=== PATIENT | female | born 1930 | race Two or more races ===

== ENCOUNTER 2017-08-21 10:18 | Outpatient (CLI) | payer OTHER | END 2017-08-21 10:38 | disposition home or self-care (01) | LOC: RAD 501 10:18 | DX: M17.0 Bilateral primary osteoarthritis of knee (principal) ==

== ENCOUNTER 2017-09-13 21:35 | Inpatient (IN) | payer OTHER ==
[~2017-09-13] VITALS: Ht 149.9 cm; Wt 80.7 kg
== END 2017-09-14 15:01 | disposition left against medical advice (07) | DRG 294 ==
LOC: ER 21:35 → MEDJ 09-14 09:16
PROC: B54DZZZ Ultrasonography of Bilateral Lower Extremity Veins (ICD-10-PCS; principal; 2017-09-14)
DX: I80.232 Phlebitis and thrombophlebitis of left tibial vein (principal); L03.116 Cellulitis of left lower limb; I10 Essential (primary) hypertension; I87.2 Venous insufficiency (chronic) (peripheral)

== ENCOUNTER 2017-11-27 12:47 | Inpatient (IN) | payer OTHER ==
[~2017-11-27] VITALS: Ht 162.6 cm; Wt 90.7 kg
[2017-12-01] MEDS ORDERED: LOPRESSOR25 MG PO (12:16)
== END 2017-12-02 11:10 | disposition home or self-care (01) | DRG 89 ==
LOC: ER 12:47 → MEDJ 11-28 15:16 → SEC-K 11-28 15:16 → MEDJ 11-28 16:00 → MEDI 11-28 16:00 → MEDJ 11-28 17:05
PROC: 0S9D3ZZ Drainage of Left Knee Joint, Percutaneous Approach (ICD-10-PCS; principal; 2017-11-28)
PROC: B246ZZZ Ultrasonography of Right and Left Heart (ICD-10-PCS; 2017-11-28)
PROC: 4A12X4Z Monitoring of Cardiac Electrical Activity, External Approach (ICD-10-PCS; 2017-11-28)
PROC: B345ZZZ Ultrasonography of Bilateral Common Carotid Arteries (ICD-10-PCS; 2017-11-29)
PROC: B348ZZZ Ultrasonography of Bilateral Internal Carotid Arteries (ICD-10-PCS; 2017-11-29)
PROC: B030ZZZ Magnetic Resonance Imaging (MRI) of Brain (ICD-10-PCS; 2017-11-30)
DX: S06.0X9A Concussion with loss of consciousness of unspecified duration, initial encounter (principal); M62.82 Rhabdomyolysis; F02.81 Dementia in other diseases classified elsewhere, unspecified severity, with behavioral disturbance; F05 Delirium due to known physiological condition; G30.8 Other Alzheimer's disease; R55 Syncope and collapse; M25.462 Effusion, left knee; S80.02XA Contusion of left knee, initial encounter; S70.02XA Contusion of left hip, initial encounter; W18.39XA Other fall on same level, initial encounter; Y93.89 Activity, other specified; Y92.091 Bathroom in other non-institutional residence as the place of occurrence of the external cause; Y99.8 Other external cause status; I10 Essential (primary) hypertension
CPT/HCPCS: 70553

== ENCOUNTER 2018-04-22 11:38 | Emergency (ER) | payer OTHER ==
[~2018-04-22] VITALS: Ht 157.5 cm; Wt 70.3 kg
[~2018-04-22 11:38] MED LIST: LOPRESSOR25 MG PO
== END 2018-04-22 14:55 | disposition home or self-care (01) ==
LOC: ER 11:38
DX: R07.81 Pleurodynia (principal); M25.50 Pain in unspecified joint